=== PATIENT | female | born 1985 | race American Indian/Alaskan Native ===

== ENCOUNTER 2016-10-29 18:01 | Emergency (ER) | payer MEDICAID ==
[2016-10-29 19:33] VITALS: BP 150/103
[2016-10-29 20:00] LABS: Basophils % (Auto) 0.9 % (0.0-1.8); Eosinophils % (Auto) 1.3 % (0.0-4.3); Hematocrit 39.2 % (30.3-42.9); Hemoglobin 13.1 gm/dl (10.1-14.3); Mean Corpuscular HGB Conc 33 % (30-34); Mean Corpuscular Hemoglobin 30 pg (28-32); Mean Corpuscular Volume 91 fl (79-97); Platelet Count 185 K/mm3 (140-440); Red Blood Count 4.29 M/mm3 (3.65-5.03); Red Cell Distribution Width 12.7 % (13.2-15.2); White Blood Count 6.9 K/mm3 (4.5-11.0)
[2016-10-29 20:08] LABS: Anion Gap 17 mmol/L; Blood Urea Nitrogen 12 mg/dL (7-17); Calcium 8.9 mg/dL (8.4-10.2); Carbon Dioxide 25 mmol/L (22-30); Chloride 101.5 mmol/L (98-107); Glucose 91 mg/dL (65-100); Potassium 4.1 mmol/L (3.6-5.0); Sodium 139 mmol/L (137-145)
[2016-10-29 20:57] LABS: Bacteria,Urine 1+ /HPF (Negative); Bilirubin,Urine NEG (Negative); Blood,Urine MOD (Negative); Ketones,Urine NEG (Negative); Leukocyte Esterase,Urine LG (Negative); Mucus,Urine FEW /HPF; Nitrite,Urine NEG (Negative); Protein,Urine <15 mg/dL mg/dL (Negative); Urobilinogen,Urine < 2.0 mg/dL (<2.0)
--- NOTE | 2016-10-29 21:36 | Ultrasound Report ---
FINAL REPORT PROCEDURE: US OB transabdominal and transvaginal TECHNIQUE: Real-time transabdominal and transvaginal sonography was performed of pelvic structures. HISTORY: VAG BLEEDING / COMPARISON: No prior studies are available for comparison. FINDINGS: Uterus measures 8.7 x 4.6 x 5.8 centimeters. Endometrium measures 6 millimeters in thickness. No endometrial fluid or intrauterine gestational sac is seen. Cervix: Normal. Right Ovary: 1.9 centimeter simple cyst is noted Left Ovary: 1.1 centimeter cyst or follicle is noted No free fluid or adnexal mass is noted. IMPRESSION: No intrauterine is identified. Cannot exclude ectopic or early gestation. Recommend follow-up PROCEDURE: TECHNIQUE: HISTORY: COMPARISON: FINDINGS: IMPRESSION:
== END 2016-10-29 22:55 | disposition left against medical advice (07) ==
LOC: ED 18:01
DX: O26.891 Other specified pregnancy related conditions, first trimester (principal); R10.30 Lower abdominal pain, unspecified; Z53.21 Procedure and treatment not carried out due to patient leaving prior to being seen by health care provider
CPT/HCPCS: 36415; 76801; 76817; 80048; 81001; 84702; 85025

== ENCOUNTER 2016-10-31 09:38 | Emergency (ER) | payer MEDICAID ==
[2016-10-31 09:55] VITALS: BP 141/96
[2016-10-31 13:45] LABS: Bilirubin,Urine NEG (Negative); Blood,Urine NEG (Negative); Ketones,Urine TR mg/dL (Negative); Leukocyte Esterase,Urine MOD (Negative); Mucus,Urine 1+ /HPF; Nitrite,Urine NEG (Negative); Protein,Urine <15 mg/dL mg/dL (Negative); Urobilinogen,Urine < 2.0 mg/dL (<2.0)
[2016-10-31] MEDS ORDERED: TYLENOL #3 PO ONE (14:40)
--- NOTE | 2016-10-31 15:17 | Emergency Department Report ---
Entered by ANA WALTER, acting as scribe for MORGAN CLEMONS NP. ED HPI - General Chief complaint: Urogenital-Female Stated complaint: POSITIVE /IUD Time Seen by Provider: 10/31/16 12:28 Source: patient, RN notes reviewed, old records reviewed (Labs, US ) Mode of arrival: Ambulatory Limitations: No Limitations - History of Present Illness Initial comments: Pt is a 31 y.o. female with a hx of G9:P4:Ab4 presents to [facility] for evaluation of 1-1.5 week hx of cramping left-sided pelvic pain with mucoid vaginal discharge and nausea. Patient states that she recently had a positive test at her facing baster jumpbasting's office, at which time her Mirena was taken out. She notes that she was sent to the ED to rule out ectopic . Pt does not report vaginal bleeding. She denies dysuria, fever, or chills. Patient states that she has had the Mirena since 2012. LMP started October 08, 2016. PT states she left after signing in on 10-29-16 and she would like her results. PT states she wants to know if she has an ectopic MD Complaint: vaginal discharge, other (left-sided pelvic pain) Onset/Timin -: week(s) Location: pelvis Severity scale (0 -10): 8 Quality: cramping Consistency: constant Worsens with: other (palpation ) Associated symptoms: nausea/vomiting, vaginal discharge. denies: vaginal bleeding, dysuria Vaginal bleeding: none :: Yes OB History - Current : other (unsure if she is having an ectopic ) Last menstrual period: 10/08/16 - Related Data : 9 Para: 4 Ab: 4 Previous Rx's Medication Instructions Recorded Last Taken Type Acetaminophen/Codeine [Tylenol #3] 1 tab PO Q6H PRN #10 tab 01/11/16 Unknown Rx Nitrofurantoin [place]/M-Cryst 100 mg PO Q12HR #14 capsule 10/31/16 Unknown Rx [Macrobid CAP] Allergies Allergy/AdvReac Type Severity Reaction Status Date / Time No Known Allergies Allergy Unverified 01/11/16 14:08 ED Review of Systems Comment: All other systems reviewed and negative Constitutional: denies: chills, fever Gastrointestinal: abdominal pain (left pelvic pain), nausea Genitourinary: discharge. denies: dysuria ED Past Medical Hx - Past Medical History Previous Medical History?: Yes Hx Hypertension: Yes Additional medical history: Vaaginal delivery x 4 - Surgical History Past Surgical History?: Yes Additional Surgical History: Umbilical hernia repair - Social History Smoking Status: Never Smoker Substance Use Type: Alcohol, Non Opiate Pain - Medications Home Medications: Home Medications Medication Instructions Recorded Confirmed Last Taken Type Acetaminophen/Codeine [Tylenol #3] 1 tab PO Q6H PRN #10 tab 01/11/16 Unknown Rx Nitrofurantoin [place]/M-Cryst 100 mg PO Q12HR #14 capsule 10/31/16 Unknown Rx [Macrobid CAP] ED Physical Exam - General Limitations: No Limitations General appearance: alert, in no apparent distress - Head Head exam: Present: atraumatic, normocephalic, normal inspection - Eye Eye exam: Present: normal appearance, PERRL, EOMI. Absent: conjunctival injection - ENT ENT exam: Present: normal exam, mucous membranes moist, normal external ear exam - Neck Neck exam: Present: normal inspection, full ROM. Absent: tenderness, lymphadenopathy - Respiratory Respiratory exam: Present: normal lung sounds bilaterally. Absent: respiratory distress - Cardiovascular Cardiovascular Exam: Present: regular rate, normal rhythm, normal heart sounds - GI/Abdominal GI/Abdominal exam: Present: soft, tenderness (L pelvic ), normal bowel sounds. Absent: guarding, rebound, rigid - External exam: Present: other (female straw baler at bedside ) Speculum exam: Present: vaginal discharge, cervical discharge, other (moderate amount of frothy white vaginal discharge ) Bi-manual exam: Present: normal bi-manual exam, adnexal tenderness (L ). Absent : cervical motion tendernes, adnexal mass - Extremities Exam Extremities exam: Present: normal inspection, full ROM. Absent: tenderness, pedal edema, joint swelling - Back Exam Back exam: Present: normal inspection, full ROM. Absent: tenderness, CVA tenderness (R), CVA tenderness (L), muscle spasm, paraspinal tenderness, vertebral tenderness - Neurological Exam Neurological exam: Present: alert, oriented X3, normal gait - Psychiatric Psychiatric exam: Present: normal affect, normal mood - Skin Skin exam: Present: warm, dry, intact, normal color ED Course Vital Signs 10/31/16 10/31/16 09:49 14:53 Temperature 98.1 F Pulse Rate 68 Respiratory 16 12 Rate Blood Pressure 141/96 O2 Sat by Pulse 99 Oximetry - Reevaluation(s) Reevaluation #1: Reviewed labs from previous visit and current visit with pt. PT aware she will need to follow up with her PROJECTS MANAGER. PT aware her bhcg has decreased from previous visit. PT had US 2 days ago, No IUP was seen but bquant 34, would not expect to visualize IUP. PT aware she has UTI based on UA. PT given strict return precautions. - Pulse Oximetry Interpretation Digit-Finger Initial Pulse Oximetry Readin Actions Taken: none ED Medical Decision Making - Lab Data Laboratory Results - last 24 hr 10/31/16 10/31/16 10:05 13:03 HCG, Quant 31.94 H Urine Color Yellow Urine Turbidity Clear Urine pH 7.0 Ur Specific [place] 1.016 Urine Protein <15 mg/dl Urine Glucose (UA) Neg Urine Ketones Tr Urine Blood Neg Urine Nitrite Neg Urine Bilirubin Neg Urine Urobilinogen < 2.0 Ur Leukocyte Esterase Mod Urine WBC (Auto) 17.0 H Urine RBC (Auto) 4.0 U Epithel Cells (Auto) 8.0 Urine Mucus 1+ quant decreased from 34 to 31. 94 - Differential Diagnosis std, vaginitis, threatened miscarriage Critical Care Time: No ED Disposition Clinical Impression: Elevated serum hCG, Pelvic pain UTI (urinary tract infection) Qualifiers: Urinary tract infection type: site unspecified Hematuria presence: without hematuria Qualified Code(s): N39.0 - Urinary tract infection, site not specified Disposition: - TO HOME OR SELFCARE Is pt being admited?: No Does the pt Need Aspirin: No Condition: Stable Instructions: Spontaneous Miscarriage (ED), Urinary Tract Infection in Women ( ED) Additional Instructions: Call your OB/ MAINTENANCE TEAM LEADER on Wednesday Return to the ED if worsening or you have concerns. OTC Tylenol as needed for pain Prescriptions: Nitrofurantoin [place]/M-Cryst [Macrobid CAP] 100 mg PO Q12HR #14 capsule Referrals: ABBIE FRANCOIS MD [Staff Physician] - 3-5 Days PRIMARY CARE, [Primary Care Provider] - 3-5 Days Forms: Work/School Release Form(ED) Time of Disposition: 16:53 This documentation as recorded by the JOSE ANGEL newell KELLY,accurately reflects the service I personally performed and the decisions made by me,MORGAN CLEMONS , SOFÍA.
== END 2016-10-31 17:32 | disposition home or self-care (01) ==
LOC: ED 09:38
DX: O23.41 Unspecified infection of urinary tract in pregnancy, first trimester (principal); O16.1 Unspecified maternal hypertension, first trimester; R79.89 Other specified abnormal findings of blood chemistry; Z3A.00 Weeks of gestation of pregnancy not specified
CPT/HCPCS: 36415; 81001; 84702; 87210; 87591; 99284

== ENCOUNTER 2021-06-19 13:38 | Outpatient (CLI) | payer MEDICAID ==
[2021-06-19 19:45] VITALS: BP 125/82
== END 2021-06-19 18:15 | disposition home or self-care (01) ==
LOC: LAB 13:38 → APU 17:43 → LAB 18:15
DX: O26.893 Other specified pregnancy related conditions, third trimester (principal); O09.523 Supervision of elderly multigravida, third trimester; O16.3 Unspecified maternal hypertension, third trimester; O99.333 Smoking (tobacco) complicating pregnancy, third trimester; F17.200 Nicotine dependence, unspecified, uncomplicated; Z67.41 Type O blood, Rh negative; Z3A.30 30 weeks gestation of pregnancy
CPT/HCPCS: 86850; 86900; 86901; 96372; J2790